=== PATIENT | female | born 1980 | race Two or more races ===

== ENCOUNTER 2019-04-10 18:37 | Emergency (ER) | payer MEDICAID ==
[~2019-04-10] VITALS: Ht 152.4 cm; Wt 90.7 kg
[2019-04-10 18:46] VITALS: BP 136/76
--- NOTE | 2019-04-10 18:46 | NUR ---
PT BIB C/O OPEN SURGICAL SITE, PT IS AAOX4, NOT IN RESPIRATORY DISTRESS, V/S STABLE, KEPT RESTED AND COMFORTABLE, WILL CONTINUE TO MONITOR.
--- NOTE | 2019-04-10 18:56 | NUR ---
BECCA BRISENO AT BEDSIDE FOR EVAL.
--- NOTE | 2019-04-10 19:19 | NUR ---
Patient discharged to home in stable condition. Written and verbal after care instructions given. Patient verbalizes understanding of instruction.
== END 2019-04-10 19:20 | disposition home or self-care (01) ==
LOC: ER 18:44
DX: T81.30XA Disruption of wound, unspecified, initial encounter (principal); Z98.84 Bariatric surgery status; Z98.890 Other specified postprocedural states

== ENCOUNTER 2020-02-15 22:18 | Emergency (ER) | payer MEDICAID ==
[~2020-02-15] VITALS: Ht 152.4 cm; Wt 72.6 kg
--- NOTE | 2020-02-15 22:41 | NUR ---
EMT AT BEDSIDE FOR EKG
[2020-02-15] MEDS ORDERED: IBUPROFEN 400 MG TABLET ONE (22:59)
[2020-02-15] MEDS: IBUPROFEN 400 MG TABLET PO ONE (23:02)
[2020-02-15] MEDS ORDERED: ACETAMINOPHEN 325 MG TABLET ONE (23:03)
--- NOTE | 2020-02-15 23:10 | NUR ---
RADIOLOGY AT BEDSIDE
[2020-02-15] MEDS: ACETAMINOPHEN 325 MG TABLET PO ONE (23:41)
--- NOTE | 2020-02-16 00:01 | NUR ---
Patient discharged to home in stable condition. Written and verbal after care instructions given. Patient verbalizes understanding of instruction and RX. vss.
[2020-02-16 00:17] VITALS: BP 121/76
== END 2020-02-16 00:17 | disposition home or self-care (01) ==
LOC: ER 22:18
DX: R07.89 Other chest pain (principal); Z98.890 Other specified postprocedural states
CPT/HCPCS: 71100-TC